=== PATIENT | male | born 1995 | race Caucasian/White ===

== ENCOUNTER → 2017-11-01 | Outpatient (CLI) | payer OTHER ==
[~2017-11-01] MED LIST: FLOMAX0.4 MG PO; IBUPROFEN 800800 M1 PO; ZOFRAN ODT4 MG PO
== END ==
LOC: M.ULTRA 14:27
DX: I86.1 Scrotal varices (principal); N50.3 Cyst of epididymis; N50.9 Disorder of male genital organs, unspecified